=== PATIENT | male | born 1975 ===

== ENCOUNTER 2017-01-05 10:36 | Emergency (ER) | payer OTHER ==
[2017-01-05 10:36] VITALS: BMI 23.1
[2017-01-05 10:50] VITALS: PULSE 70; TEMP 97.6
[2017-01-05 12:00] LABS: BASO % 0.7 % (0.0-2.0); EOS # 0.2 K/uL (0.0-0.7); EOS % 2.9 % (0.0-4.0); HEMATOCRIT 40.3 % (35.0-51.0); LYMPH # 1.7 K/uL (1.0-4.3); LYMPH % 27.7 % (20.0-40.0); MEAN CELL VOLUME 86.1 fL (80.0-94.0); MEAN CORPUSCULAR HEMOGLOBIN 29.2 pg (27.0-31.0); MEAN CORPUSCULAR HGB CONC 33.9 g/dL (33.0-37.0); MEAN PLATELET VOLUME 7.9 fL (7.2-11.7); MONO # 0.5 K/uL (0.0-0.8); MONO % 8.1 % (0.0-10.0); WHITE BLOOD COUNT 6.2 K/uL (4.8-10.8)
[2017-01-05 12:10] LABS: CHLORIDE 101 mmol/L (98-107); PARTIAL THROMBOPLASTIN TIME 29 SECONDS (21-34); SODIUM 139 mmol/L (132-148)
[2017-01-05 12:11] LABS: POTASSIUM 4.1 mmol/L (3.6-5.2)
[2017-01-05 12:13] LABS: ALB/GLOB RATIO 1.3 (1.0-2.1); ALKALINE PHOSPHATASE 75 U/L (38-126); AST/SGOT 28 U/L (17-59); BILIRUBIN,TOTAL 0.9 mg/dL (0.2-1.3); BLOOD UREA NITROGEN 18 mg/dL (9-20); CARBON DIOXIDE 29 mmol/L (22-30); GFR AFRICAN-AMERICAN > 60; GLUCOSE,RANDOM 91 mg/dL (75-110); TOTAL PROTEIN 7.6 g/dL (6.3-8.3)
[2017-01-05 12:14] LABS: ALT/SGPT 53 U/L (21-72); CALCIUM 8.7 mg/dl (8.6-10.4)
--- NOTE | 2017-01-05 12:19 | RAD ---
HISTORY: right pleuritic pain/cough COMPARISON: None available TECHNIQUE: Chest PA and lateral FINDINGS: LUNGS: Biapical pleural thickening. No focal consolidation. Please note that chest x-ray has limited sensitivity for the detection of pulmonary masses. PLEURA: No significant pleural effusion identified. No definite pneumothorax . CARDIOVASCULAR: The cardiomediastinal silhouette appears within normal limits of size. OSSEOUS STRUCTURES: No acute osseous abnormality identified. VISUALIZED UPPER ABDOMEN: Unremarkable. OTHER FINDINGS: None. IMPRESSION: Biapical pleural thickening. No focal consolidation, significant pleural effusion, or definite pneumothorax identified.
--- NOTE | 2017-01-05 12:42 | C.PDOC ---
History Of Present Illness The patient, a 41 y/o male, presents to the ED for evaluation of cough which began around 3 weeks ago. Patient also reports severe right-sided pleuritic pain which began around 1 week ago. Patient experiences pain with breathing, coughing and/or sneezing. He reports taking Motrin and Tylenol without relief. Otherwise, he denies fever, chills, extremity numbness/weakness. Time Seen by Provider: 01/05/17 11:24 Chief Complaint (Nursing): Cough, Cold, Congestion History Per: Patient History/Exam Limitations: no limitations Onset/Duration Of Symptoms: Other (weeks ) Current Symptoms Are (Timing): Still Present Associated Symptoms: Cough, Other. denies: Fever, Chills, Nausea, Vomiting Ear Symptoms: Bilateral: None Additional History Per: Patient Past Medical History Reviewed: Historical Data, Nursing Documentation, Vital Signs Vital Signs: Last Vital Signs Temp 97.6 F 01/05/17 10:45 Pulse 70 01/05/17 10:45 Resp 18 01/05/17 10:45 BP 137/91 H 01/05/17 10:45 Pulse Ox 100 01/05/17 12:52 - Medical History PMH: Kidney Stones Surgical History: No Surg Hx Family History: States: Unknown Family Hx - Social History Hx Tobacco Use: No Hx Alcohol Use: No Hx Substance Use: No - Immunization History Hx Tetanus Toxoid Vaccination: No Hx Influenza Vaccination: No Hx Pneumococcal Vaccination: No Review Of Systems Except As Marked, All Systems Reviewed And Found Negative. Constitutional: Negative for: Fever, Chills Cardiovascular: Positive for: Other (+right-sided pleuritic pain ) Respiratory: Positive for: Cough Physical Exam - Physical Exam Appears: Non-toxic, No Acute Distress Skin: Normal Color, Warm, Dry Head: Atraumatic, Normacephalic Eye(s): bilateral: Normal Inspection, PERRL, EOMI Ear(s): Bilateral: Normal Oral Mucosa: Moist Neck: Normal ROM, Supple Chest: Symmetrical, No Deformity, Tenderness (right rib region on palpation), No Ecchymosis Cardiovascular: Rhythm Regular, No Murmur Respiratory: Normal Breath Sounds, No Rales, No Rhonchi, No Wheezing, Other (+ unable to take deep breathes secondary to pain ) Back: Normal Inspection, No Vertebral Tenderness, No Paraspinal Tenderness Extremity: Normal ROM, Capillary Refill (less than 2 seconds ) Neurological/Psych: Oriented x3, Normal Speech, Normal Cognition Gait: Steady ED Course And Treatment - Laboratory Results Result Diagrams: 01/05/17 11:53 01/05/17 11:53 ECG: Interpreted By Me, Viewed By Me Interpretation Of ECG: Normal Sinus rhythm with sinus arrhythmia at rate 71 bpm. O2 Sat by Pulse Oximetry: 100 (on RA) Pulse Ox Interpretation: Normal - Other Rad CXR X-Ray: Interpreted by Me, Viewed By Me, Read By Radiologist Interpretation: Accession No. : [id number]. Patient Name / ID : JACOBO GANT / [id number]. Exam Date : 01/05/2017 11:57:37 ( Approved ). Study Comment : Sex / Age : M / 41Y. Creator : Lucy Stack MD. Dictator : Lucy Stack MD. Semi Driver : Barrel Painter : Lucy Stack MD. Approver2 : Report Date : 01/05/2017 12:18:06. My Comment : . HISTORY: right pleuritic pain/cough. COMPARISON: None available. TECHNIQUE: Chest PA and lateral. FINDINGS: LUNGS: Biapical pleural thickening. No focal consolidation. Please note that chest x-ray has limited sensitivity for the detection of pulmonary masses. PLEURA: No significant pleural effusion identified. No definite pneumothorax . CARDIOVASCULAR: The cardiomediastinal silhouette appears within normal limits of size. OSSEOUS STRUCTURES: No acute osseous abnormality identified. VISUALIZED UPPER ABDOMEN : Unremarkable. OTHER FINDINGS: None. IMPRESSION: Biapical pleural thickening. No focal consolidation, significant pleural effusion, or definite pneumothorax identified. Progress Note: labs, CXR, and EKG ordered. labs and D-dimer test is unremarkable. CXR is unremarkable. Patient received Toradol IV. Disposition - Disposition Disposition: HOME/ ROUTINE Disposition Time: 13:06 Condition: IMPROVED Additional Instructions: Follow up with your PMD within 1-2 days. Return to Ed if feel worse. Prescriptions: Lidocaine 4% [Lidocaine 4% 50 ml Topical (or)] 1 appl TOP QID #1 bottle Lidocaine 5% [Lidoderm] 1 patch TP DAILY #30 patch Promethazine HCl/Codeine [Prometh-Codein 6.25-10 mg/5 ml] 5 ml PO .Q4-6H #150 ml traMADol [Ultram] 50 mg PO Q6 #30 tab Azithromycin [Zithromax] 250 mg PO DAILY #4 tab Instructions: Acute Bronchitis (ED), Pleurisy (ED) Forms: Work Excuse - Clinical Impression Clinical Impression: Bronchitis, Pleuritic chest pain - PA / [employer] / Resident Statement MD/DO has reviewed & agrees with the documentation as recorded. - Scribe Statement The provider has reviewed the documentation as recorded by the Scribe (Маиря Viera) All medical record entries made by the Scribe were at my direction and personally dictated by me. I have reviewed the chart and agree that the record accurately reflects my personal performance of the history, physical exam, medical decision making, and the department course for this patient. I have also personally directed, reviewed, and agree with the discharge instructions and disposition.
[2017-01-05] MEDS ORDERED: Lidocaine 5% Patch TD STA (12:58)
[2017-01-05] MEDS ORDERED: Lidocaine 5% Patch TD ONE (13:03)
[2017-01-05 13:16] VITALS: BP 135/78; RESP 16
[2017-01-05 23:13] VITALS: O2SAT 100
--- NOTE | 2017-01-11 07:48 | CARD ---
APPROVED REPORT EKG Measurement Heart [id number] <Conclusion> Normal sinus rhythm with sinus arrhythmia Normal ECG
== END 2017-01-05 13:15 | disposition home or self-care (01) ==
LOC: C.ER 10:36
DX: J40 Bronchitis, not specified as acute or chronic (principal); R07.81 Pleurodynia
CPT/HCPCS: 71020; 80053; 85025; 85378; 85610; 85730; 93005; 96374; 99283; J1885